=== PATIENT | female | born 1980 | race Caucasian/White ===

== ENCOUNTER 2018-09-04 09:29 | Day surgery (SDC) | payer OTHER ==
[2018-09-04] VITALS (14 sets, daily range): BP systolic 118–153; BP diastolic 58–84; PULSE 63–96; RESP 11–27; Ht 170.2 cm; Wt 65.2 kg
[~2018-09-04] VITALS: Ht 170.2 cm; Wt 65.2 kg
[2018-09-04] MEDS ORDERED: METH4TAB10 PO (10:00)
[2018-09-04] MEDS ORDERED: LIDOCAINE 1%/EPI (1:100,000) (MDV) 20 ML ONE (10:20)
[2018-09-04] MEDS ORDERED: BACITRACIN/POLYMYXIN 28.35 GM OINT TOP ONE (10:21)
[2018-09-04] MEDS ORDERED: COCAINE 4% 4 ML TOP ONE (10:21)
[2018-09-04] MEDS ORDERED: OXYMETAZOLINE 0.05% 15 ML NAS SPRAY NASAL ONE ×2 (10:21→11:20)
[2018-09-04] MEDS ORDERED: ONDANSETRON 4 MG INJ IV PRN (11:00)
[2018-09-04] MEDS ORDERED: OXYCODONE/ACETAMINOPHEN (5/325) TAB PO PRN ×2 (11:00)
[2018-09-04] MEDS ORDERED: IPRATROPIUM (NEB) 0.5 MG/2.5 ML AMP HHN PRN (11:00)
[2018-09-04] MEDS ORDERED: TRIMETHOBENZAMIDE 100 MG/ML VIAL IM PRN (11:00)
[2018-09-04] MEDS ORDERED: LABETALOL HCL 20MG INJ IV PRN (11:00)
[2018-09-04] MEDS ORDERED: ALBUTEROL 0.083% (NEB) 2.5 MG/3 ML AMP HHN PRN (11:00)
[2018-09-04] MEDS ORDERED: EPHEDrine SULFATE 50 MG/5 ML SYG IV PRN (11:00)
[2018-09-04] MEDS ORDERED: MEPERIDINE 25 MG INJ IV PRN (11:00)
[2018-09-04] MEDS ORDERED: hydrALAzine 20 MG INJ IV PRN (11:00)
[2018-09-04] MEDS ORDERED: DIPHENHYDRAMINE 50 MG INJ IV PRN (11:00)
[2018-09-04] MEDS ORDERED: HYDROmorphONE 1 MG/5 ML IV SYRINGE IV PRN ×3 (11:00)
[2018-09-04] MEDS ORDERED: MIDAZOLAM 1 MG/ML 2 ML INJ IV PRN (11:00)
[2018-09-04] MEDS ORDERED: FENTAnyl 50 MCG/ML VIAL IV PRN ×3 (11:00)
--- NOTE | 2018-09-04 11:00 | PREAC ---
Date/Time of Note Date/Time of Note DATE: 09/04/18 TIME: 10:59 Anesthesia Eval and Record Evaluation Time Pre-Procedure Interview DATE: 09/04/18 TIME: 10:59 Age 38 Sex female NPO: 8 hrs Preoperative diagnosis CHRONIC PANSINUSITIS, SEPTAL DEVIATION, TURBINATE HYPERTROPHY Planned procedure FESS, SEPTOPLASTY, TURBINATE REDUCTION Past Medical History Past Medical History: None Surgery & Anesthesia Issues No known issue Meds Anticoagulation: No Beta Sonja within 24 hr: No Reason Beta Sonja not given: Pt. not on B-Sonja Reported Medications Methylprednisolone (Methylprednisolone) 4 Mg Tab.ds.pk, 4 MG PO DAILY 09/04/18 Meds reviewed: Yes Allergies Coded Allergies: No Known Allergy (Unverified , 09/04/18) Allergies Reviewed: Yes Labs/Studies Labs Reviewed: Reviewed by anesthesiologist test: Negative Pre-procedure Exam Last vitals Vital Signs Date Temp Pulse Resp B/P (MAP) Pulse Ox O2 O2 Flow FiO2 Time Delivery Rate 09/04/18 98.7 63 16 118/58 10:34 (78) Airway: Adequate mouth opening, Adequate thyromental dist Mallampati: Mallampati II Teeth: Normal Lung: Normal Heart: Normal ASA Physical Status ASA physical status: 1 Emergency: None Planned Anesthetic General/MAC: ETT Planned Pain Management Parenteral pain med Pre-operative Attestations Prior to commencing anesthesia and surgery, the patient was re-evaluated, there was verification of: *The patient's identity *The results of appropriate recent lab work and preoperative vital signs *The above evaluation not changing prior to induction *Anesthetic plan, risk benefits, alternative and complications discussed with patient/family; questions answered; patient/family understands, accepts and wishes to proceed. Montana Hanson M.D. Sep 04, 2018 11:00
--- NOTE | 2018-09-04 11:11 | HPN ---
Date/Time of Note Date/Time of Note DATE: 09/04/18 TIME: 11:11 Interval H&P Admission Note Pt. seen H&P reviewed: No system changes PABLITO HAIRSTON MD Sep 04, 2018 11:11
[2018-09-04] MEDS ORDERED: FENTAnyl 50 MCG/ML VIAL ONE ×3 (11:50→14:10)
[2018-09-04] MEDS ORDERED: MIDAZOLAM 1 MG/ML 2 ML INJ ONE (11:50)
[2018-09-04] MEDS ORDERED: CEFAZOLIN 1 GM INJ ONE (11:50)
[2018-09-04] MEDS ORDERED: PROPOFOL 20 ML ONE (11:50)
[2018-09-04] MEDS ORDERED: ROCURONIUM 50 MG INJ ONE (11:50)
[2018-09-04] MEDS ORDERED: GLYCOPYRROLATE 0.4 MG INJ ONE (11:50)
[2018-09-04] MEDS ORDERED: ONDANSETRON 4 MG INJ ONE (11:51)
[2018-09-04] MEDS ORDERED: DEXAMETHASONE 4 MG/ML 5 ML INJ ONE (11:51)
[2018-09-04] MEDS ORDERED: LIDOCAINE 1%/EPI (1:100,000) (MDV) 20 ML INJ ONE (12:49)
[2018-09-04] MEDS ORDERED: SUGAMMADEX SODIUM 200 MG/2 ML VIAL IV ONE (14:45)
[2018-09-04] MEDS ORDERED: HYDROmorphONE 1 MG/5 ML IV SYRINGE IV ONE (15:11)
--- NOTE | 2018-09-04 15:29 | SIPON ---
Date/Time of Note Date/Time of Note DATE: 09/04/18 TIME: 15:24 Operative Report Preoperative Diagnosis Chronic sinusitis Septal deviation Turbinate hypertrophy Postoperative Diagnosis Chronic sinusitis Septal deviation Turbinate hypertrophy Operation/Procedure Performed Endoscopic sinus surgery Septoplasty Turbinate reduction Surgeon see signature line geriatric nurse assistant None Anesthesia: general Estimated blood loss: 50 - 100 ml's Transfusion Required none Specimen Sinus contents Septal contents Grafts/Implants none Complications none PABLITO HAIRSTON MD Sep 04, 2018 15:29
--- NOTE | 2018-09-04 15:30 | PAC ---
Date/Time of Note Date/Time of Note DATE: 09/04/18 TIME: 15:30 Post-Anesthesia Notes Post-Anesthesia Note Last documented vital signs Vital Signs Date Temp Pulse Resp B/P (MAP) Pulse Ox O2 O2 Flow FiO2 Time Delivery Rate 09/04/18 98.1 15:06 09/04/18 63 16 118/58 10:34 (78) Activity: WNL Respiratory function: WNL Cardiovascular function: WNL Mental status: Baseline Pain reasonably controlled: Yes Hydration appropriate: Yes Nausea/Vomiting absent: Yes Montana Hanson M.D. Sep 04, 2018 15:30
--- NOTE | 2018-09-04 17:08 | OPR ---
Date/Time of Note Date/Time of Note DATE: 09/04/18 TIME: 16:35 Operative Report Preoperative Diagnosis 1. Chronic rhinosinusitis with nasal polyps. 2. Chronic frontal sinusitis. 3. Chronic ethmoid sinusitis. 4. Chronic maxillary sinusitis. 5. Chronic sphenoid sinusitis. 6. Hyposmia. 7. Postnasal drainage. 8. Septal deviation. 9. Inferior turbinate hypertrophy. Postoperative Diagnosis Same. Operation/Procedure Performed 1. Bilateral total ethmoidectomies (anterior and posterior). 2. Bilateral maxillary antrostomies with tissue removal. 3. Bilateral sphenoid sinusotomies with tissue removal. 4. Right frontal sinuplasty. 5. Computer-assisted surgical navigation. 6. Septoplasty. 7. Bilateral submucous reduction of inferior turbinates. Surgeon see signature line Contact Center Engineer None. Anesthesia Type: general Estimated Blood Loss: 50 - 100 ml's Transfusion none Specimen 1. Sinus contents. 2. Septal contents. Grafts/Implants none Complications none Pt Condition Post Procedure: stable Disposition: home Procedure Description OPERATIVE REPORT OTOLARYNGOLOGY / HEAD AND NECK SURGERY DATE OF OPERATION: 09/04/2018 ATTENDING SURGEON: Dipak Avitia MD, [facility]. ANESTHESIOLOGIST: Dr. Hanson. PREOPERATIVE DIAGNOSIS: 1. Chronic rhinosinusitis with nasal polyps. 2. Chronic frontal sinusitis. 3. Chronic ethmoid sinusitis. 4. Chronic maxillary sinusitis. 5. Chronic sphenoid sinusitis. 6. Hyposmia. 7. Postnasal drainage. 8. Septal deviation. 9. Inferior turbinate hypertrophy. POSTOPERATIVE DIAGNOSIS: Same. PROCEDURE: 1. Bilateral total ethmoidectomies (anterior and posterior). 2. Bilateral maxillary antrostomies with tissue removal. 3. Bilateral sphenoid sinusotomies with tissue removal. 4. Right frontal sinuplasty. 5. Computer-assisted surgical navigation. 6. Septoplasty. 7. Bilateral submucous reduction of inferior turbinates. ANESTHESIA: General. INDICATIONS: This patient presented with a history of chronic rhinosinusitis with polyps. She has had multiple infections and office examination showed obvious very large polyps. She has had prior rhinoplasty and there was scar tissue. I also noted on the preoperative CT scan that her left frontal sinus was hypoplastic. I discussed with the patient the risks, benefits, rationale, and alternatives to surgery, including risks of failure to improve symptoms, worsening of symptoms, loss of smell/taste, CSF leak, eye injury, empty nose syndrome, pain, scar, bleeding, numbness, infection, need for further treatment, and reactions to general anesthesia that could even include . The patient elected to proceed. FINDINGS: Severe right septal deviation. Synechiae between septum and right inferior turbinate. Diffuse polyps. DESCRIPTION OF PROCEDURE: The patient was identified in the preoperative holding area and the informed consent was confirmed. The patient was transferred to the operating room and positioned on the operating table with all pressure points padded. A time-out was performed. The patient was orally intubated by the anesthesiologist without difficulty. The eyes were protected by the anesthesiologist. Image guidance was placed on the patient's forehead, registered, calibrated, and deemed to be accurate prior to surgery. The use of image guidance was necessary in this operation due to loss of landmarks from the prior surgery and distorted anatomy from polyps. Left maxillary antrostomy with tissue removal: Polyps in the ethmoid sinus and middle meatus were removed using a straight microdebrider. The polyps in the maxillary sinus were removed using a curved microdebrider. There was thick mucus draining from the left maxillary sinus, which was evacuated, using irrigation solution. A straight through-cutting forceps was used to extend the antrostomy posteriorly, and a backbiter was used to connect the surgical antrostomy to the natural ostium. A curved microdebrider was used with angled endoscopes to remove polyps along the floor of the sinus. Left total ethmoidectomy with tissue removal: The ethmoid bulla was removed using a curette and microdebrider. The ground lamella of the middle turbinate was identified and entered above the sphenopalatine artery branch. The polyps and tissue from the anterior and posterior ethmoids were removed using a microdebrider and forceps. The partitions between the ethmoids were removed with thru cutting instruments and microdebrider. The superior turbinate was identified and preserved above the level of the maxillary roof. The dissection proceeded from posterior to anterior until the polyps were removed. Left sphenoid sinusotomy: There were polyps and edema filling the sphenoid sinus. It was removed using a straight microdebrider. Thick mucopus in the sphenoid sinus was then evacuated using irrigation solution. Specimen was sent for culture. Multiple instruments were used to identify the natural sphenoid ostium and then widen that ostium. There was scar tissue between the right septum and right inferior turbinate. The cartilage was slightly deficient anteriorly. After dividing this scar tissue it was clear that the right septal deviation was too severe to allow for passage of the endoscope treatment of polyp disease. Therefore I proceeded with septoplasty. Injection of 1% lidocaine with 1:100,000 epinephrine was performed for a total of 7mL in the submucoperichondrial plane of the septum. A hemitransfixion incision was made in the left caudal septum with a #15 blade. The submucoperichondrial plane was identified sharply. The mucoperichondrial flap was elevated fully on the left side, back to the bony septum, with endoscopic assistance. This flap was 100% intact. A transcartilaginous incision was made using the angled [place] blade, preserving a more than 1.5cm dorso- caudal strut. The mucoperichondrial flap was elevated from the right side of the septum. There was a tiny tear over the spur. When adequate exposure was obtained, a cartilage D knife was used to incise the cartilage superiorly, anteriorly, and inferiorly. A segment of deviated cartilage with a large spur to the right was resected en bloc. This allowed visualization of the posterior septum. The posterior bony septum was relatively straight and left intact. The maxillary crest was also deviated to the right side significantly. Deviated portions were removed with Su forceps. Examination of the bilateral nasal cavities revealed increased patency at this point, so the hemitransfixion incision was closed with 4-0 chromic suture in an interrupted manner. Right maxillary antrostomy with tissue removal: Polyps in the ethmoid sinus and middle meatus were removed using a straight microdebrider. The polyps in the maxillary sinus were removed using a curved microdebrider. There was thick mucus draining from the right maxillary sinus, which was evacuated, using irrigation solution. A straight through-cutting forceps was used to extend the antrostomy posteriorly, and a backbiter was used to connect the surgical antrostomy to the natural ostium. Right total ethmoidectomy with tissue removal: The ethmoid bulla was removed using a curette and microdebrider. The ground lamella of the middle turbinate was identified and entered above the sphenopalatine artery branch. The polyps and tissue from the anterior and posterior ethmoids were removed using a micr odebrider and forceps. The partitions between the ethmoids were removed with thru cutting instruments and microdebrider. The superior turbinate was identified and preserved above the level of the maxillary roof. The dissection proceeded from posterior to anterior until the polyps were removed. There was some bleeding from the SPA branch which was entered due to severely distorted p olypoid changes of the turbinate and this was controlled with suction Bovie. Right sphenoid sinusotomy: There were polyps and edema filling the sphenoid sinus. It was removed using a straight microdebrider. Thick mucus in the sphenoid sinus was then evacuated using irrigation solution. Multiple instruments were used to identify the natural sphenoid ostium and then widen that ostium. Right frontal sinuplasty: Multiple partitions and polyps in the skull base near the frontal recess were removed using a curved microdebrider. Polyps in the frontal recess were removed using a curved microdebrider. The frontal recess was identified with the navigated suction. The Acclarent balloon device was introduced and the guidewire was passed into the sinus with the light clearly visualized in the forehead. Following this the balloon was deployed and inflated to 12 ronny for 30 seconds. The frontal recess was inspected and found to be widely patent Next, the turbinate reduction was performed. 1% lidocaine with 1:100,000 epin ephrine was injected into the submucoperiosteal plane of each inferior turbinate. A stab incision was made at the head of each inferior turbinate with a #15 blade. The plane was tunneled posteriorly with a carlie elevator on the left side. Visualization was achieved with the 0 degree endoscope. The microdebrider with the 2mm turbinate blade was used to resect the turbinate tissue in a submucosal manner. The bipolar cautery was introduced, and was activated while it was slowly withdrawn from the turbinate, with hemostasis of the turbinate head ensured. The carlie and butter knife were used to in-fracture and then out-fracture the inferior turbinate. This was repeated identically on the right side. Propel stents were introduced into the maxillary sinus ostia and ethmoid bed bilaterally in order to prevent polyp regrowth and medialize the middle turbinate to improve the nasal airway postoperatively. Nasopore was placed between the septum and inferior turbinates to prevent synechiae. Hemostasis at this time was excellent. The patient was thereafter returned to the care of the anesthesiologist and ultimately extubated without complications. All instrument and sponge counts were correct. MEDICATIONS: Ancef, Decadron. DVT PROPHYLAXIS: SCDs. ESTIMATED BLOOD LOSS: Minimal. SPECIMENS: 1. Sinus contents. 2. Septal contents. COMPLICATIONS: None. DISPOSITION: The patient was transported to recovery in stable condition. DIPAK AVITIA MD Sep 04, 2018 16:49
== END 2018-09-04 17:40 | disposition home or self-care (01) ==
LOC: SDS 09:29
PROVIDERS: ATTEND Otolaryngology
DX: J34.2 Deviated nasal septum (principal); J34.3 Hypertrophy of nasal turbinates; J32.2 Chronic ethmoidal sinusitis; J32.1 Chronic frontal sinusitis; J32.0 Chronic maxillary sinusitis; J32.3 Chronic sphenoidal sinusitis
CPT/HCPCS: 30140; 30520; 31253; 31256; 31257; 87070; 87116; J0690; J1100; J1170; J2250; J2405; J3010; Z7512; Z7610; 88300; 88304